=== PATIENT | female | born 1960 | race Caucasian/White ===

== ENCOUNTER 2017-09-25 17:01 | Emergency (ER) | payer BC ==
[2017-09-25] MEDS ORDERED: MORPHINE SULFATE 10 MG/ML VIAL IVP ONE (17:57)
[2017-09-25] MEDS ORDERED: ONDANSETRON HCL IV 4 MG/2 ML VIAL IVP ONE (17:57)
[2017-09-25] MEDS ORDERED: 0.9 % SODIUM CHLORIDE 1000ML 1,000 ML IV SCH (18:00)
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
[2017-09-25 18:28] LABS: BASO % 0.5 % (0-6); EOS % 0.6 % (0-6); GRAN % 79.2 % (47-80); HEMATOCRIT 42.7 % (35.0-47.0); HEMOGLOBIN 13.4 gm/dl (11.6-16.0); LYMPH % 13.2 % (16-45); MEAN CELL VOLUME 95.5 fl (81-97); MEAN CORPUSCULAR HGB CONC 31.4 g/dl (32-36); MEAN PLATELET VOLUME 9.8 fl (7.4-10.4); MONO % 6.5 % (0-9); PLATELET COUNT 217 K/uL (130-400); RED BLOOD COUNT 4.47 M/uL (3.80-5.40); RED CELL DISTRIBUTION WIDTH 13.9 % (11.5-14.5); WHITE BLOOD COUNT W/O DIFF 8.8 K/uL (4.2-12.2)
[2017-09-25 18:40] LABS: BLOOD UREA NITROGEN 21 mg/dL (6-20); CREATININE 0.7 mg/dL (0.5-0.9); EST GLOMERULAR FILTRATION RATE > 60 mL/min
[2017-09-25 18:41] LABS: TOTAL PROTEIN 7.2 g/dL (6.6-8.7)
[2017-09-25 18:43] LABS: GLUCOSE,RANDOM 87 mg/dL (74-109)
[2017-09-25 18:45] LABS: ALBUMIN 4.8 g/dL (4.0-5.0); ALKALINE PHOSPHATASE 48 U/L (35-104); ALT/SGPT 21 U/L (<33); AST/SGOT 24 U/L (10.0-35.0)
[2017-09-25] MEDS ORDERED: KETOROLAC 30 MG/ML VIAL IVP ONE (18:57)
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
== END 2017-09-25 20:26 | disposition home or self-care (01) ==
LOC: ER 17:01
DX: S20.212A Contusion of left front wall of thorax, initial encounter (principal); R10.32 Left lower quadrant pain; M25.552 Pain in left hip; M79.652 Pain in left thigh; R91.1 Solitary pulmonary nodule; Z87.891 Personal history of nicotine dependence; V19.3XXA Pedal cyclist (driver) (passenger) injured in unspecified nontraffic accident, initial encounter; Y93.55 Activity, bike riding
CPT/HCPCS: 99284 ×2; 96374; 83605; 85025; 80053; 71260; 74177; 94010; G0480; Q9967; J1885; 80320; J7030